=== PATIENT | female | born 1935 | race Caucasian/White ===

== ENCOUNTER 2017-06-15 06:32 | Day surgery (SDC) | payer MEDICARE, BC ==
[~2017-06-15 06:32] MED LIST: Acetaminophen TAB* 325 MG PO PRN; Buffered Lidocaine 0.9% SYRIN* 5 ML/SYR SYRINGE INTRADERM ONE; Proparacaine 0.5% OPHTH.SOL* 15 ML BTL ONE; mitoMYcin 0.2 MG (0.02%) in Sterile Water for Inj* 1 ML OPHTHALMIC SCH
[2017-06-15] MEDS ORDERED: Atropine 1% OPHTH.SOL* 2 ML BOT - 2 ML ONE (07:11)
[2017-06-15] MEDS ORDERED: Triamcinolone Acetonide* 40 MG/ML 1 ML VIAL ONE (07:11)
[2017-06-15] MEDS ORDERED: Acetylcholine 1:100 OPTH* OPHTH.SOLN ONE (07:11)
[2017-06-15] MEDS ORDERED: Lidocaine 2% PF* 10 ML AMP ONE (07:11)
[2017-06-15] MEDS ORDERED: Lidocaine 1.5% EPI 1:200,000* 30 ML SDV ONE (07:12)
[2017-06-15] MEDS ORDERED: BSS OPTH.SOL* BTL ONE (07:12)
[2017-06-15] MEDS ORDERED: Hyaluronidase OVINE* 200 UNIT/ML ML SUBCUT ONE (07:12)
[2017-06-15] MEDS ORDERED: Neomycin/Polymy/Dex OPTH.SUSP* MAXITROL 0.1% 5 ML ONE (07:12)
[2017-06-15] MEDS ORDERED: Povidone Iodine 5% OPTH* 30 ML BTL ONE (07:12)
[2017-06-15] MEDS ORDERED: Midazolam* 1 MG/ML 2 ML VIAL (2 MG) ONE (07:16)
[2017-06-15] MEDS ORDERED: fentaNYL* 50 MCG/ML 2 ML VIAL (100 MCG VIAL) ONE (07:16)
[2017-06-15] MEDS ORDERED: Lidocaine 2% PF * 5 ML VIAL ONE (07:43)
[2017-06-15] MEDS ORDERED: Propofol* 10 MG/ML 20 ML BTL IV PUSH ONE (07:43)
[2017-06-15 09:59] VITALS: BP 117/82
--- NOTE | 2017-06-15 16:17 | OP ---
DATE OF OPERATION: 06/15/17 - [facility] DATE OF : 31 SURGEON: Truman Silverio M.D. ANESTHESIA: Local with MAC. COMPLICATIONS: None. PREOPERATIVE DIAGNOSIS: Uncontrolled glaucoma, left eye. POSTOPERATIVE DIAGNOSIS: Uncontrolled glaucoma, left eye. OPERATIVE PROCEDURE: Trabeculectomy, left eye. DESCRIPTION OF PROCEDURE: The patient was given retrobulbar anesthesia in the operating room, 50:50 mixture of 1.5% lidocaine with epinephrine mixture of 0.75 % Marcaine, 4 cc given in the muscle cone without difficulty. The patient was prepped and draped in the usual sterile fashion. A fornix-based conjunctival peritomy was made from the 12 o'clock to 2 o'clock position. Hemostasis was achieved with low temp cautery. Mitomycin-C 0.2 mg/mL placed in the sub-Tenon's for 90 seconds and then thoroughly irrigated with balanced salt solution. A limbal based triangular, half scleral thickness, flap was created with the crescent blade and a 3 mm keratome used to enter the anterior chamber through that opening. Paracentesis was made at the 4 o'clock position with a 75 blade. Miochol instilled into the anterior chamber. Small amount of DisCoVisc and a trabecular block 3 x 1 mm was removed with a Елена punch and peripheral iridectomy performed with Vannas scissors. The tip of the scleral flap was sutured with one 10-0 nylon suture and the conjunctiva closed with a combination of a 10-0 nylon running and a 9-0 Vicryl running suture. Of note, a traction suture of 6-0 silk was placed through the superior limbus at the beginning of the procedure. This was removed at this point. Anterior chamber reinflated with balance salt solution. A wound found to be watertight, topical atropine and Maxitrol were given, and the eye was patched. [id number]/[facility] #: [id number] [facility]ITAL[facility]
== END 2017-06-15 09:46 | disposition home or self-care (01) ==
LOC: OREAST 06:32
PROVIDERS: ATTEND Specialist
DX: H40.1423 Capsular glaucoma with pseudoexfoliation of lens, left eye, severe stage (principal); H35.3122 Nonexudative age-related macular degeneration, left eye, intermediate dry stage; H40.1411 Capsular glaucoma with pseudoexfoliation of lens, right eye, mild stage; Z96.1 Presence of intraocular lens; Z79.01 Long term (current) use of anticoagulants; I48.91 Unspecified atrial fibrillation; Z95.0 Presence of cardiac pacemaker; Z88.8 Allergy status to other drugs, medicaments and biological substances; M81.0 Age-related osteoporosis without current pathological fracture; N32.81 Overactive bladder
CPT/HCPCS: A9270-GY; J2001; J2250; J2704; J3010; J3301; J3471; J9280

== ENCOUNTER 2018-09-11 13:26 | Emergency (ER) | payer MEDICARE, OTHER ==
[2018-09-11 13:37] VITALS: BP 116/71
--- NOTE | 2018-09-11 14:11 | UC ---
Skin Complaint HPI - HPI Summary HPI Summary: The patient is a 83-year-old female that presents here with a pruritic rash on her left anterior shoulder. She denies any pain. She noticed it a few days ago. It has not increased in size since she noticed it. - History of Current Complaint Chief Complaint: UCSkin Time Seen by Provider: 09/11/18 13:53 Stated Complaint: TICK Hx Obtained From: Patient Onset/Duration: Gradual Onset, Lasting Days Timing: Constant Onset Severity: Mild Current Severity: Mild Pain Intensity: 0 Pain Scale Used: 0-10 Numeric Location: Discrete - left shoulder Character: Pruritus, Redness, Raised Aggravating Factor(s): Nothing Alleviating Factor(s): Nothing Associated Signs & Symptoms: Positive: Rash - Allergy/Home Medications Allergies/Adverse Reactions: Allergies Allergy/AdvReac Type Severity Reaction Status Date / Time No Known Allergies Allergy Verified 06/15/17 06:58 Home Medications: Home Medications Donepezil TAB* [Aricept 5 MG TAB*] 5 mg PO DAILY 09/11/18 [History Confirmed 10/17] Sertraline HCl [Zoloft] 50 mg PO 09/11/18 [History] Review of Systems All Other Systems Reviewed And Are Negative: Yes Constitutional: Positive: Negative Skin: Positive: Rash Eyes: Positive: Negative ENT: Positive: Negative Respiratory: Positive: Negative Cardiovascular: Positive: Negative Gastrointestinal: Positive: Negative Genitourinary: Positive: Negative Motor: Positive: Negative Neurovascular: Positive: Negative Musculoskeletal: Positive: Negative Neurological: Positive: Negative Psychological: Positive: Negative PMH/Surg Hx/FS Hx/Imm Hx Previously Healthy: Yes Cardiovascular History: Hypertension, Pacemaker/ICD, Atrial Fibrillation - Surgical History Surgical History: Yes Surgery Procedure, Year, and Place: 11/20/13 - [facility] - IS NOT MRI COMPATIBLE. tonsilectomy as a child. left knee, . umbilical hernia, age 10. papito cataracts , 1999. appendectomy, 1945 - Family History Known Family History: Positive: Hypertension - Social History Alcohol Use: Occasionally Alcohol Amount: 3 per week Substance Use Type: None Smoking Status (MU): Never Smoked Tobacco Physical Exam Triage Information Reviewed: Yes Appearance: Well-Appearing, No Pain Distress, Well-Nourished Vital Signs: Initial Vital Signs Temp 98.3 F 09/11/18 13:32 Pulse 40 09/11/18 13:32 Resp 18 09/11/18 13:32 BP 116/71 09/11/18 13:32 Pulse Ox 90 09/11/18 13:32 Eyes: Positive: Conjunctiva Clear ENT: Negative: Hearing grossly normal, Nasal congestion, Nasal drainage, Trismus , Muffled voice, Hoarse voice Neck: Positive: Supple, Nontender, No Lymphadenopathy Respiratory: Positive: Lungs clear, Normal breath sounds, No respiratory distress, No accessory muscle use Cardiovascular: Positive: RRR. Negative: Tachycardia, Bradycardia Musculoskeletal: Positive: No Edema Neurological: Positive: Muscle Tone Normal Psychological Exam: Normal Skin Exam: Other - see image Course/Dx - Diagnoses Provider Diagnoses: tinea corporis Discharge - Sign-Out/Discharge Documenting (check all that apply): Patient Departure All imaging exams completed and their final reports reviewed: No Studies - Discharge Plan Condition: Stable Disposition: HOME Prescriptions: Clotrimazole/Betamethasone* [Lotrisone Cream*] 1 applic TOPICAL BID #14 tube Patient Education Materials: Tinea Corporis (ED) Referrals: Brenda Crowder MD [Primary Care Provider] - 2 Weeks (if not better) - Billing Disposition and Condition Condition: STABLE Disposition: Home Images Front/Back of Body, Lg ([place]): 1 - 2.0 x 2.8cm red anular lesion with raised border and slight scale
== END 2018-09-11 14:10 | disposition home or self-care (01) ==
LOC: UCEAST 13:26
DX: B35.4 Tinea corporis (principal); I10 Essential (primary) hypertension; Z95.0 Presence of cardiac pacemaker
CPT/HCPCS: 99211; G0463

== ENCOUNTER 2019-01-10 10:01 | Day surgery (SDC) | payer MEDICARE, OTHER ==
--- NOTE | 2019-01-02 14:37 | HP ---
C: Dr. Silverio * HISTORY AND PHYSICAL/CONSULTATION: DATE OF ADMISSION/SURGERY: 01/10/19 [facility] HISTORY: Judie Salazar is an 83-year-old woman scheduled for repositioning of intraocular lens implant of the left eye under local anesthesia with monitored anesthesia care on 01/10/19. PAST MEDICAL HISTORY: The patient has the following medical problems: 1. Chronic atrial fibrillation, on warfarin therapy. 2. Pacemaker. 3. Mild cognitive impairment. 4. Depression. 5. Macular degeneration. CURRENT MEDICATIONS: 1. Oxybutynin 5 mg daily. 2. Glucosamine 500 mg b.i.d. 3. Digoxin 125 mcg daily. 4. Alendronate 70 mg weekly. 5. Metoprolol extended release 25 mg daily. 6. Donepezil 10 mg daily. 7. Synalar topical solution to scalp 2 to 4 times a day p.r.n. 8. Viactiv 500 mg twice a day, takes erratically. 9. PreserVision AREDS 2 one cap twice a day. 10. Sertraline 50 mg daily. 11. Metamucil 1 to 3 teaspoons daily. 12. Travatan Z 0.004% eye drops daily. 13. Citrucel 500 mg 2 tabs by mouth daily. 14. Coumadin 2.5 mg daily or as directed. 15. Timolol 0.5 mg daily, left eye. ALLERGIES: MELATONIN caused diarrhea. HABITS: Tobacco: None. EtOH: Occasional. Caffeine: Three cups a day. FAMILY HISTORY: Noncontributory. SOCIAL AND PERSONAL HISTORY: The patient is . She is retired. She lives in her own cottage at [facility]. She has adult children in the area. She is planning to move to assisted living in a few months. She will go to assisted living after her surgery in order for them to help her with her eye drops, but then wants to go back to her [place] at least for few months before moving up there permanently. REVIEW OF SYSTEMS: Generally, she feels well. She does have some sleep issues. She is not as hungry as she used to be, but her weight is stable. She denied fevers, chills, or sweats. She does walk, does not exercise as much as she used to. Skin: Negative. HEENT: See above. She has hearing aids which she wears erratically. Nose: Negative: Heme: She bruises more easily then she used to. Breasts: She has an inverted left nipple for many years. Endocrine: Negative. Respiratory: She has some dyspnea on exertion. Cardiovascular: She denies chest pain. See above. She sees Dr. Cottrell who is her interactive media project manager. GI: She had recent gastroenteritis that left her with some diarrhea. This has resolved. Her bowel movements are not normal. : She has urinary incontinence for which she has been doing pelvic PT. This seems to be getting somewhat better. BRAZER HELPER INDUCTION: She is menopausal. Musculoskeletal: Negative. Neuro: Negative. Psychiatric: She has had some depression for which sertraline has been helpful. PHYSICAL EXAMINATION VITAL SIGNS: Weight 104 pounds, blood pressure 126/76, pulse 85, respirations 20, temperature 98.5. She is an elderly white female, in no acute distress. HEENT: Atraumatic, normocephalic. Eye exam per Dr. Silverio. TMs unremarkable. Mouth and pharynx benign. NECK: Without thyromegaly. NODES: Without adenopathy. CHEST: Clear. Pacemaker in left upper chest. HEART: Normal S1, S2. Grade 2/6 systolic murmur. ABDOMEN: Soft, nontender. No hepatosplenomegaly. EXTREMITIES: Show varicose veins. No edema. NEUROLOGIC: Without gross focal or lateralizing signs. DTRs are 2+ and symmetric knee and ankle jerks. SKIN: Warm and dry. IMPRESSION: The patient with medical problems as noted above. She has dyspnea on exertion but is able to walk a half a mile without problems. She has mild to moderate aortic stenosis on echo. Dr. Cottrell is her interactive media project manager, he should be contacted for specific cardiac concerns. There are no contraindications to repositioning of lens of the left eye as noted. She will be going to assisted living after the surgery for them to help her with her drops. I will be available should any problems or concerns arise. [id number]/[facility] #: [id number] [facility]ENTERGe[facility]
[~2019-01-10 10:01] MED LIST changes: -Buffered Lidocaine 0.9% SYRIN* 5 ML/SYR SYRINGE INTRADERM ONE; +Buffered Lidocaine 1% SYRIN* 1 ML/SYRINGE INTRADERM ONE; -Proparacaine 0.5% OPHTH.SOL* 15 ML BTL ONE; -mitoMYcin 0.2 MG (0.02%) in Sterile Water for Inj* 1 ML OPHTHALMIC SCH
[2019-01-10] MEDS ORDERED: Bupivacaine 0.25% SDV PF* 10 ML VIAL INJ ONE (10:12)
[2019-01-10] MEDS ORDERED: Hyaluronidase OVINE* 200 UNIT/ML ML SUBCUT ONE (10:13)
[2019-01-10] MEDS ORDERED: Lidocaine 2% EPI 1:200000 MPF*10-20 ML VIAL ONE ×2 (10:13→10:16)
[2019-01-10] MEDS ORDERED: Sodium Bicarbonate 8.4% VIAL* 10 ML VIAL IV ONE (10:15)
[2019-01-10] MEDS ORDERED: Ketorolac 0.5% OPHTH (NF) 0.5 % 5 ML BTL ONE (10:16)
[2019-01-10] MEDS ORDERED: Cyclopentolate 1% OPTH.SOL* 2 ML BTL ONE (10:16)
[2019-01-10] MEDS ORDERED: Neomycin/Polymy/Dex OPTH.SUSP* MAXITROL 0.1% 5 ML ONE (10:16)
[2019-01-10] MEDS ORDERED: Proparacaine 0.5% OPHTH.SOL* 15 ML BTL ONE (10:16)
[2019-01-10] MEDS ORDERED: Phenylephrine 2.5% OPTH.SOL* 2 ML BTL ONE (10:16)
[2019-01-10] MEDS ORDERED: Lidocaine 1%* 5 ML VIAL ONE (10:16)
[2019-01-10] MEDS ORDERED: Povidone Iodine 5% OPTH* 30 ML BTL ONE (10:16)
[2019-01-10] MEDS ORDERED: acetaZOLAMIDE TAB* 250 MG ONE (10:16)
[2019-01-10] MEDS ORDERED: Carbachol 0.01% OPH.SOL* 1.5 ML OPHTH.SOLN ONE (11:57)
[2019-01-10] MEDS ORDERED: Triamcinolone OPHTH Inj (NF) 40 MG/ML 1 ML VIAL *** OPHTH USE ONLY ONE (11:57)
[2019-01-10] MEDS ORDERED: fentaNYL* 50 MCG/ML 2 ML VIAL (100 MCG VIAL) ONE (12:05)
[2019-01-10] MEDS ORDERED: Midazolam* 1 MG/ML 2 ML VIAL (2 MG) ONE (12:05)
[2019-01-10] MEDS ORDERED: BSS OPTH.SOL* BTL ONE ×2 (12:28→13:05)
[2019-01-10] MEDS ORDERED: Propofol* 10 MG/ML 20 ML BTL ONE (13:26)
[2019-01-10] MEDS ORDERED: Ondansetron INJ* 2 MG/ML VIAL ONE (13:26)
[2019-01-10 13:42] VITALS: BP 129/77
--- NOTE | 2019-01-10 14:55 | OP ---
DATE OF OPERATION: 01/10/19 - [facility] DATE OF : 31 SURGEON: Truman Silverio MD ANESTHESIA: Local with MAC. PRE-OP DIAGNOSIS: Displacement of lens, left eye. POST-OP DIAGNOSIS: Displacement of lens, left eye. OPERATIVE PROCEDURE: Implant exchange, left eye and anterior vitrectomy with iris fixation. COMPLICATIONS: None. DESCRIPTION OF PROCEDURE: The patient was given retrobulbar anesthesia in the operating room, 4 cc of 50:50 mixture of 2% lidocaine with epinephrine mixed with 0.25% Marcaine, bicarb and Vitrase added. The eye was prepped and draped in the usual sterile fashion. Lid speculum was placed. The eye was inspected. The artificial lens within its capsule was decentered far inferiorly with the optic in the lower portion of the pupil. Initially, I thought it would be best to try to reposition the current lens. A paracentesis was made at the 4 o'clock , 8 o'clock, 10 o'clock and 2 o'clock positions. DisCoVisc was then used in the anterior chamber as well as 1% non-preservative intracameral lidocaine. The cannula for the DisCoVisc was used to reposition the optic over the lens in the anterior chamber and the haptics were sutured with two 10-0 Prolene sutures through the iris at the 12 and 6 o'clock position in the McCannel technique. However, after inspection of the lens, I was still not happy with the position. There was a descent amount of the original capsule that was blocking good positioning of the lens, so I decided to exchange the lens. A clear corneal incision was made at the 3 o'clock position using the keratome. It was approximately 4 mm in width. The haptics were delivered through the incision, lens bisected and removed. The lens was bisected using the Vannas scissors. A new lens [id number] was folded and implanted into the anterior chamber with the haptics behind the iris and the optic in front of the iris. Again, the haptics were fixated using a 10-0 Prolene suture using a McCannel technique at 6 and 12. This time, the optic was in very good position, was repositioned into the posterior chamber. Triesence 10% was inflated into the anterior chamber and then thorough anterior vitrectomy performed. Anterior chamber reestablished using balanced salt solution. The 4 mm corneal incision was closed using 3 interrupted 10-0 nylon sutures. Topical Maxitrol drops were given and the eye was patched. [id number]/[facility] #: [id number] [facility]
== END 2019-01-10 14:05 | disposition home or self-care (01) ==
LOC: OREAST 10:01
PROVIDERS: ATTEND Specialist
DX: T85.22XA Displacement of intraocular lens, initial encounter (principal); H35.30 Unspecified macular degeneration; Y83.1 Surgical operation with implant of artificial internal device as the cause of abnormal reaction of the patient, or of later complication, without mention of misadventure at the time of the procedure; Z79.01 Long term (current) use of anticoagulants; I48.2 Chronic atrial fibrillation; Z95.0 Presence of cardiac pacemaker
CPT/HCPCS: A9270-GY; J2250; J2405; J2704; J3010; J3471; J3490; V2632

== ENCOUNTER 2020-07-16 11:20 | Inpatient (IN) ==
[2020-07-16] MEDS ORDERED: Tetan/Diph/Pertus SYR(Tdap) 0.5 ML SYR(BOOSTRIX) use SYR contains LATEX IM ONE (11:24)
[2020-07-16 11:44] LABS: ABS Basophils 0.1 10^3/ul (0-0.2); ABS Eosinophils 0.1 10^3/ul (0-0.6); ABS Lymphocytes 0.9 10^3/ul (1.0-4.8); ABS Monocytes 0.7 10^3/ul (0-0.8); ABS Neutrophils 5.4 10^3/ul (1.5-7.7); Hematocrit 42 % (35-47); Hemoglobin 14.4 g/dL (12.0-16.0); Lymphocyte % 13.1 %; Mean Corpuscular HGB Conc 34 g/dL (31-36); Mean Corpuscular Hemoglobin 28 pg (27-31); Mean Corpuscular Volume 83 fL (80-97); Mean Platelet Volume 8.6 fL (7.4-10.4); Platelet Count 226 10^3/uL (150-450); Red Blood Count 5.08 10^6 /uL (3.70-4.87); Red Cell Distribution Width 17 % (10-15); White Blood Count 7.1 10^3/uL (3.5-10.8)
[2020-07-16 11:49] LABS: INR 2.54 (0.82-1.09)
[2020-07-16 12:03] LABS: Albumin 4.8 g/dL (3.2-5.2); Albumin/Globulin Ratio 1.4 (1-3); BUN/Creatinine Ratio 15.4 (8-20); Calcium 10.1 mg/dL (8.6-10.3); EGFR African American 70.9 (>60); EGFR Non-African American 58.6 (>60); Globulin 3.5 g/dL (2-4); Total Protein 8.3 g/dL (6.4-8.9)
[2020-07-16] MEDS ORDERED: Phytonadione SUBCUT/IM Adult 10 MG/ML AMP (IM or SQ not preferred route) SUBCUT ONE (12:07)
[2020-07-16] MEDS ORDERED: levETIRAcetam 1000MG IVPREMIX 1,000 MG/100 ML BAG IVPB ONE (12:16)
[2020-07-16] MEDS ORDERED: Prothrombin Complex Conc. DOSE = Units Factor IX (nine) IV SLOW PU ONE (12:30)
[2020-07-16] MEDS ORDERED: niCARdipine 0.1MG/ML IVPREMIX 20 MG/200 ML BAG IV SCH ×2 (14:00→15:51)
[2020-07-16] MEDS ORDERED: Magnesium Hydroxide LIQ 30 ML UDC PO PRN (15:50)
[2020-07-16] MEDS: Dextran 70/Hypromellose Tears Eye Drops 15 ml BTL (for Artificials Tears) BOTH EYES SCH ×2 (18:06→19:52)
[2020-07-17] MEDS ORDERED: Haloperidol 5 mg/ml SDV IV/IM 5 MG/ML AMP ONE (01:48)
[2020-07-17] MEDS ORDERED: Haloperidol 5 mg/ml SDV IV/IM 5 MG/ML AMP IV SLOW PU ONE (01:50)
[2020-07-17 06:20] LABS: Hematocrit 35 % (35-47); Hemoglobin 11.7 g/dL (12.0-16.0); Mean Corpuscular HGB Conc 34 g/dL (31-36); Mean Corpuscular Hemoglobin 28 pg (27-31); Mean Corpuscular Volume 82 fL (80-97); Mean Platelet Volume 8.6 fL (7.4-10.4); Platelet Count 208 10^3/uL (150-450); Red Blood Count 4.24 10^6 /uL (3.70-4.87); Red Cell Distribution Width 16 % (10-15); White Blood Count 9.5 10^3/uL (3.5-10.8)
[2020-07-17 06:38] LABS: INR 1.23 (0.82-1.09)
[2020-07-17 07:37] LABS: Calcium 9.1 mg/dL (8.6-10.3); Potassium 3.8 mmol/L (3.5-5.0)
[2020-07-17 07:42] LABS: BUN/Creatinine Ratio 15.3 (8-20); EGFR African American 92.9 (>60); EGFR Non-African American 76.8 (>60)
[2020-07-17] MEDS: Dextran 70/Hypromellose Tears Eye Drops 15 ml BTL (for Artificials Tears) BOTH EYES SCH ×5 (09:33→20:25)
[2020-07-17] MEDS: Enoxaparin 40 MG/0.4 ML SYR SUBCUT SCH ×2 (09:34→09:54)
[2020-07-17] MEDS ORDERED: Iodixanol (CONTRAST) 320 MG/ML 100 ML SDV IV ONE (10:37)
[2020-07-17 16:26] LABS: ABS Basophils 0.1 10^3/ul (0-0.2); ABS Lymphocytes 0.9 10^3/ul (1.0-4.8); ABS Monocytes 0.9 10^3/ul (0-0.8); ABS Neutrophils 4.8 10^3/ul (1.5-7.7); Eosinophil % 0.4 %; Hematocrit 33 % (35-47); Lymphocyte % 14.1 %; Mean Corpuscular HGB Conc 33 g/dL (31-36); Mean Corpuscular Hemoglobin 27 pg (27-31); Mean Corpuscular Volume 82 fL (80-97); Mean Platelet Volume 8.8 fL (7.4-10.4); Nucleated Red Blood Cells % 0.1; Platelet Count 197 10^3/uL (150-450); Red Blood Count 4.03 10^6 /uL (3.70-4.87); Red Cell Distribution Width 16 % (10-15); White Blood Count 6.7 10^3/uL (3.5-10.8)
[2020-07-17 16:32] LABS: Phosphorus 2.8 mg/dL (2.5-5.0); Potassium 3.7 mmol/L (3.5-5.0)
[2020-07-18 07:34] LABS: ABS Basophils 0.1 10^3/ul (0-0.2); ABS Eosinophils 0.1 10^3/ul (0-0.6); ABS Monocytes 0.9 10^3/ul (0-0.8); ABS Neutrophils 5.7 10^3/ul (1.5-7.7); Eosinophil % 0.9 %; Hematocrit 34 % (35-47); Hemoglobin 11.9 g/dL (12.0-16.0); Lymphocyte % 12.8 %; Mean Corpuscular HGB Conc 35 g/dL (31-36); Mean Corpuscular Hemoglobin 28 pg (27-31); Mean Corpuscular Volume 81 fL (80-97); Mean Platelet Volume 8.8 fL (7.4-10.4); Platelet Count 220 10^3/uL (150-450); Red Blood Count 4.22 10^6 /uL (3.70-4.87); Red Cell Distribution Width 16 % (10-15); White Blood Count 7.8 10^3/uL (3.5-10.8)
[2020-07-18 07:41] LABS: INR 1.22 (0.82-1.09)
[2020-07-18 07:45] LABS: Magnesium 1.9 mg/dL (1.9-2.7); Phosphorus 2.5 mg/dL (2.5-5.0); Potassium 3.8 mmol/L (3.5-5.0)
[2020-07-18] MEDS: Dextran 70/Hypromellose Tears Eye Drops 15 ml BTL (for Artificials Tears) BOTH EYES SCH ×4 (08:26→20:39)
[2020-07-18] MEDS: Enoxaparin 40 MG/0.4 ML SYR SUBCUT SCH (08:26)
[2020-07-19] MEDS: Enoxaparin 40 MG/0.4 ML SYR SUBCUT SCH (08:35)
[2020-07-19] MEDS: Dextran 70/Hypromellose Tears Eye Drops 15 ml BTL (for Artificials Tears) BOTH EYES SCH ×4 (08:43→20:10)
[2020-07-19 08:44] LABS: ABS Basophils 0.1 10^3/ul (0-0.2); ABS Eosinophils 0.1 10^3/ul (0-0.6); ABS Monocytes 0.8 10^3/ul (0-0.8); ABS Neutrophils 4.5 10^3/ul (1.5-7.7); Eosinophil % 2.2 %; Hematocrit 33 % (35-47); Hemoglobin 11.7 g/dL (12.0-16.0); Lymphocyte % 15.8 %; Mean Corpuscular HGB Conc 35 g/dL (31-36); Mean Corpuscular Hemoglobin 28 pg (27-31); Mean Corpuscular Volume 81 fL (80-97); Mean Platelet Volume 8.9 fL (7.4-10.4); Platelet Count 221 10^3/uL (150-450); Red Blood Count 4.12 10^6 /uL (3.70-4.87); Red Cell Distribution Width 16 % (10-15); White Blood Count 6.5 10^3/uL (3.5-10.8)
[2020-07-19 08:56] LABS: BUN/Creatinine Ratio 18.4 (8-20); Calcium 8.9 mg/dL (8.6-10.3); EGFR African American 87.1 (>60); Magnesium 1.9 mg/dL (1.9-2.7); Potassium 3.9 mmol/L (3.5-5.0)
[2020-07-19] MEDS: cefTRIAXone 1 gm/50 mL NS BAG 1 GM/50 ML BAG IVPB SCH (18:41)
[2020-07-20] MEDS: Dextran 70/Hypromellose Tears Eye Drops 15 ml BTL (for Artificials Tears) BOTH EYES SCH ×4 (08:41→19:41)
[2020-07-20] MEDS: Enoxaparin 40 MG/0.4 ML SYR SUBCUT SCH (08:41)
[2020-07-20 09:01] LABS: BUN/Creatinine Ratio 21.6 (8-20); Calcium 9.1 mg/dL (8.6-10.3); EGFR African American 89.8 (>60); EGFR Non-African American 74.2 (>60); Potassium 4.1 mmol/L (3.5-5.0)
[2020-07-20 09:02] LABS: ABS Eosinophils 0.1 10^3/ul (0-0.6); ABS Monocytes 0.6 10^3/ul (0-0.8); Eosinophil % 2.4 %; Hematocrit 36 % (35-47); Hemoglobin 12.1 g/dL (12.0-16.0); Lymphocyte % 16.6 %; Mean Corpuscular HGB Conc 34 g/dL (31-36); Mean Corpuscular Hemoglobin 28 pg (27-31); Mean Corpuscular Volume 82 fL (80-97); Mean Platelet Volume 8.8 fL (7.4-10.4); Platelet Count 241 10^3/uL (150-450); Red Blood Count 4.39 10^6 /uL (3.70-4.87); Red Cell Distribution Width 16 % (10-15); White Blood Count 5.7 10^3/uL (3.5-10.8)
[2020-07-20] MEDS: cefTRIAXone 1 gm/50 mL NS BAG 1 GM/50 ML BAG IVPB SCH (17:14)
[2020-07-20 18:08] LABS: INR 1.3 (0.82-1.09)
[2020-07-21] MEDS ORDERED: Ondansetron 4 mg VIAL 2 MG/ML 2 ml VIAL IV PRN (06:01)
[2020-07-21 09:03] LABS: Hematocrit 37 % (35-47); Hemoglobin 12.5 g/dL (12.0-16.0); Mean Corpuscular HGB Conc 33 g/dL (31-36); Mean Corpuscular Hemoglobin 28 pg (27-31); Mean Corpuscular Volume 82 fL (80-97); Mean Platelet Volume 8.5 fL (7.4-10.4); Platelet Count 255 10^3/uL (150-450); Red Blood Count 4.55 10^6 /uL (3.70-4.87); Red Cell Distribution Width 16 % (10-15); White Blood Count 7.2 10^3/uL (3.5-10.8)
[2020-07-21 09:12] LABS: INR 1.22 (0.82-1.09)
[2020-07-21] MEDS: Enoxaparin 40 MG/0.4 ML SYR SUBCUT SCH (10:14)
[2020-07-21] MEDS: Dextran 70/Hypromellose Tears Eye Drops 15 ml BTL (for Artificials Tears) BOTH EYES SCH ×4 (10:14→20:03)
[2020-07-21] MEDS: cefTRIAXone 1 gm/50 mL NS BAG 1 GM/50 ML BAG IVPB SCH (17:35)
[2020-07-22 08:00] VITALS: BP 144/73
[2020-07-22] MEDS: Enoxaparin 40 MG/0.4 ML SYR SUBCUT SCH (08:58)
[2020-07-22] MEDS: Dextran 70/Hypromellose Tears Eye Drops 15 ml BTL (for Artificials Tears) BOTH EYES SCH (08:58)
== END 2020-07-22 09:50 | DRG 86 ==
LOC: ED 11:20 → ICU 13:54 → MEDTELE 07-18 12:55
PROVIDERS: ADMIT Internal Medicine; ATTEND Student in an Organized Health Care Education/Training Program

== ENCOUNTER 2020-07-22 09:14 | Inpatient (IN) ==
[2020-07-22] MEDS ORDERED: Magnesium Hydroxide LIQ 30 ML UDC PO PRN (13:00)
[2020-07-22] MEDS ORDERED: Senna TAB 8.6 mg TAB PO PRN (13:00)
[2020-07-22] MEDS: Dextran 70/Hypromellose Tears Eye Drops 15 ml BTL (for Artificials Tears) BOTH EYES SCH ×2 (14:10→21:21)
[2020-07-22] MEDS: cefTRIAXone 1 gm/50 mL NS BAG 1 GM/50 ML BAG IVPB SCH (18:20)
[2020-07-23 07:06] LABS: ABS Basophils 0.1 10^3/ul (0-0.2); ABS Eosinophils 0.1 10^3/ul (0-0.6); ABS Lymphocytes 1.2 10^3/ul (1.0-4.8); ABS Monocytes 0.7 10^3/ul (0-0.8); ABS Neutrophils 3.9 10^3/ul (1.5-7.7); Hematocrit 33 % (35-47); Hemoglobin 11.8 g/dL (12.0-16.0); Lymphocyte % 20.3 %; Mean Corpuscular HGB Conc 35 g/dL (31-36); Mean Corpuscular Hemoglobin 29 pg (27-31); Mean Corpuscular Volume 82 fL (80-97); Mean Platelet Volume 8.5 fL (7.4-10.4); Platelet Count 232 10^3/uL (150-450); Red Blood Count 4.08 10^6 /uL (3.70-4.87); Red Cell Distribution Width 16 % (10-15)
[2020-07-23 07:26] LABS: Albumin 3.5 g/dL (3.2-5.2); Calcium 8.8 mg/dL (8.6-10.3); Potassium 3.8 mmol/L (3.5-5.0); Total Bilirubin 0.5 mg/dL (0.2-1.0)
[2020-07-23 07:31] LABS: Albumin/Globulin Ratio 1.3 (1-3); BUN/Creatinine Ratio 35.4 (8-20); EGFR African American 104.3 (>60); EGFR Non-African American 86.2 (>60); Globulin 2.8 g/dL (2-4); Total Protein 6.3 g/dL (6.4-8.9)
[2020-07-23] MEDS: Dextran 70/Hypromellose Tears Eye Drops 15 ml BTL (for Artificials Tears) BOTH EYES SCH ×3 (08:16→21:04)
[2020-07-23] MEDS ORDERED: Enoxaparin 30 MG/0.3 ML SYR SUBCUT SCH (09:00)
[2020-07-23] MEDS: Enoxaparin 30 MG/0.3 ML SYR SUBCUT SCH (17:13)
[2020-07-23] MEDS: cefTRIAXone 1 gm/50 mL NS BAG 1 GM/50 ML BAG IVPB SCH (17:47)
[2020-07-24] MEDS: Dextran 70/Hypromellose Tears Eye Drops 15 ml BTL (for Artificials Tears) BOTH EYES SCH ×3 (10:08→21:03)
[2020-07-24] MEDS: Enoxaparin 30 MG/0.3 ML SYR SUBCUT SCH (15:58)
[2020-07-25] MEDS: Dextran 70/Hypromellose Tears Eye Drops 15 ml BTL (for Artificials Tears) BOTH EYES SCH ×3 (10:06→21:37)
[2020-07-25] MEDS: Enoxaparin 30 MG/0.3 ML SYR SUBCUT SCH (15:15)
[2020-07-26] MEDS: Dextran 70/Hypromellose Tears Eye Drops 15 ml BTL (for Artificials Tears) BOTH EYES SCH ×3 (09:32→20:03)
[2020-07-26] MEDS: Enoxaparin 30 MG/0.3 ML SYR SUBCUT SCH (15:46)
[2020-07-27] MEDS: Dextran 70/Hypromellose Tears Eye Drops 15 ml BTL (for Artificials Tears) BOTH EYES SCH ×3 (10:43→21:27)
[2020-07-27] MEDS: Enoxaparin 30 MG/0.3 ML SYR SUBCUT SCH (16:08)
[2020-07-28] MEDS: Dextran 70/Hypromellose Tears Eye Drops 15 ml BTL (for Artificials Tears) BOTH EYES SCH ×3 (08:53→22:01)
[2020-07-28] MEDS: Enoxaparin 30 MG/0.3 ML SYR SUBCUT SCH (14:42)
[2020-07-28] MEDS ORDERED: diPHENhydraMINE 25 mg TAB PO PRN (20:35)
[2020-07-29] MEDS: Dextran 70/Hypromellose Tears Eye Drops 15 ml BTL (for Artificials Tears) BOTH EYES SCH ×3 (09:28→21:14)
[2020-07-29] MEDS ORDERED: D5NS 0.9% 1000 ml BAG 1,000 ML IV SCH (15:00)
[2020-07-29] MEDS: Enoxaparin 30 MG/0.3 ML SYR SUBCUT SCH (15:01)
[2020-07-30 05:32] LABS: ABS Basophils 0.1 10^3/ul (0-0.2); ABS Eosinophils 0.1 10^3/ul (0-0.6); ABS Lymphocytes 1.1 10^3/ul (1.0-4.8); ABS Monocytes 0.8 10^3/ul (0-0.8); ABS Neutrophils 5.5 10^3/ul (1.5-7.7); Eosinophil % 0.8 %; Hematocrit 38 % (35-47); Hemoglobin 12.8 g/dL (12.0-16.0); Lymphocyte % 14.4 %; Mean Corpuscular HGB Conc 34 g/dL (31-36); Mean Corpuscular Hemoglobin 28 pg (27-31); Mean Corpuscular Volume 83 fL (80-97); Mean Platelet Volume 8.5 fL (7.4-10.4); Platelet Count 277 10^3/uL (150-450); Red Blood Count 4.63 10^6 /uL (3.70-4.87); Red Cell Distribution Width 16 % (10-15); White Blood Count 7.5 10^3/uL (3.5-10.8)
[2020-07-30 05:47] LABS: Albumin 3.4 g/dL (3.2-5.2); Albumin/Globulin Ratio 1.1 (1-3); BUN/Creatinine Ratio 18.1 (8-20); Calcium 8.4 mg/dL (8.6-10.3); EGFR African American 92.7 (>60); EGFR Non-African American 76.6 (>60); Globulin 3.1 g/dL (2-4); Potassium 3.9 mmol/L (3.5-5.0); Total Bilirubin 0.6 mg/dL (0.2-1.0); Total Protein 6.5 g/dL (6.4-8.9)
[2020-07-30] MEDS: Dextran 70/Hypromellose Tears Eye Drops 15 ml BTL (for Artificials Tears) BOTH EYES SCH ×3 (09:42→19:49)
[2020-07-30] MEDS: Enoxaparin 30 MG/0.3 ML SYR SUBCUT SCH (14:08)
[2020-07-31] MEDS: Dextran 70/Hypromellose Tears Eye Drops 15 ml BTL (for Artificials Tears) BOTH EYES SCH ×3 (09:41→19:50)
[2020-07-31] MEDS: Enoxaparin 30 MG/0.3 ML SYR SUBCUT SCH (16:16)
[2020-08-01 05:30] VITALS: BP 155/74
[2020-08-01] MEDS: Dextran 70/Hypromellose Tears Eye Drops 15 ml BTL (for Artificials Tears) BOTH EYES SCH (11:21)
== END 2020-08-01 12:51 | DRG 945 ==
LOC: PMRU 10:40
PROVIDERS: ADMIT Physical Medicine & Rehabilitation; ATTEND Physical Medicine & Rehabilitation